=== PATIENT | male | born 1995 | race Caucasian/White ===

== ENCOUNTER 2016-09-22 15:27 | Emergency (ER) | payer BC ==
[~2016-09-22] VITALS: Ht 185.4 cm; Wt 77.6 kg
[2016-09-22 15:30] VITALS: TEMP 36.8; Ht 185.4 cm; Wt 77.6 kg
[2016-09-22] MEDS ORDERED: CHOL1000 PO (15:34)
[2016-09-22] MEDS ORDERED: IBUP-1050 PO (15:34)
[2016-09-22] MEDS ORDERED: SODIUM CHLORIDE 0.9% 1000ML 1,000 ML IV STA (15:36)
[2016-09-22 15:58] VITALS: O2SAT 98
--- NOTE | 2016-09-22 17:05 | DIAGNOSTIC IMAGING REPORT ---
HEAD CT NONCONTRAST CT DOSE: 537.48 mGy.cm HISTORY: Mental status change SEIZURE TECHNIQUE: Multiaxial CT images of the head were performed without the use of intravenous contrast. Comparison: None. Findings: The paranasal sinuses and mastoid air cells are clear. The calvarium and skull base are intact. The ventricles and sulci are within normal limits. There is no mass, hematoma, midline shift, or acute infarct. Impression: No acute intracranial abnormality. Electronically signed by: Vasile Ochoa M.D. 09/22/2016 5:03 PM Dictated Date/Time: 09/22/2016 5:01 PM
[2016-09-22 17:34] LABS: BASO % 0.5 %; BASO ABS # 0.04 K/uL (0-0.2); COMPLETE YES; EOS % 2.3 %; HEMATOCRIT 37.2 % (42-52); IG% 0.3 %; LYMPH % 18.6 %; LYMPH ABS # 1.38 K/uL (1.2-3.4); MEAN CELL VOLUME 86.3 fL (80-100); MEAN CORPUSCULAR HEMOGLOBIN 31.3 pg (25-34); MEAN CORPUSCULAR HGB CONC 36.3 g/dl (32-36); MEAN PLATELET VOLUME 9.4 fL (7.4-10.4); MONO % 9.8 %; NEUT % 68.5 %; PLATELET COUNT 221 K/uL (130-400); RED BLOOD COUNT 4.31 M/uL (4.7-6.1); WHITE BLOOD COUNT 7.42 K/uL (4.8-10.8)
[2016-09-22 17:43] LABS: PARTIAL THROMBOPLASTIN RATIO 1.1
[2016-09-22 17:45] LABS: BLOOD UREA NITROGEN 19 mg/dl (7-18); CALCIUM 8.7 mg/dl (8.5-10.1); CARBON DIOXIDE 28 mmol/L (21-32); CHLORIDE 106 mmol/L (98-107); GLUCOSE 69 mg/dl (70-99); MAGNESIUM 2.3 mg/dl (1.8-2.4); POTASSIUM 4.1 mmol/L (3.5-5.1); SODIUM 143 mmol/L (136-145)
[2016-09-22 17:48] LABS: BUN/CREATININE RATIO 16.1 (10-20)
[2016-09-22 17:58] LABS: PHOSPHORUS 4.8 mg/dl (2.5-4.9)
[2016-09-22 18:58] VITALS: BP 130/90; PULSE 79; O2SAT 99
--- NOTE | 2016-09-22 20:43 | EMERGENCY ROOM VISIT NOTE ---
History Report prepared by Scribe: Catrachita Borja Under the Supervision of: Dr. Daryl Watkins M.D. 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 No seizure history. Denies any other symptoms. History of Present Illness The patient is a 21 year old male who presents to the Emergency Room with complaints of a seizure that occurred prior to arrival. He was dancing at [facility] [employer] this weekend when he suddenly began to feel nauseous and then displayed seizure like activity prior to arrival. He does not think he actually vomited. EMS states he appeared to be tonic clonic for about 2 minutes then was post-ictal for approximately 15 minutes. The patient denies any history of previous seizures. He denies biting his tongue or losing control of his bowels or bladder. The patient states he feels "normal" here in the ED, but extremely fatigued from not sleeping in over 2 days. He denies any family history of seizures. He admits he experienced a headache earlier in the day, but states it has mostly resolved. He reports he was drinking Gatorade and water throughout the weekend, and only had a "tiny sip" of a friends "Jenn Rykert energy drink". Prior to the dance marathon the patient states he was in perfect health without any issues. The patient denies fevers, chills, diaphoresis, visual changes, neck pain, chest pain, breathing difficulties, abdominal pain, back pain, melena, hematochezia, urinary symptoms, numbness, weakness, lymphadenopathy, rash, or other complaints. 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 A total of ten systems were reviewed and were otherwise negative. Family History Diabetes mellitus Social History Smoking Status: Never Smoker Alcohol Use: occasionally Drug Use: none Marital Status: single Housing Status: lives with roommate Occupation Status: [employer] student Current/Historical Medications Scheduled Cholecalciferol (Vitamin D3), 1 TAB PO BID Ibuprofen (Advil), 200-600 MG PO Q4H Allergies Coded Allergies: No Known Allergies (Unverified , 09/22/16) Physical Exam Vital Signs Date Time Temp Pulse Resp B/P Pulse Ox O2 Delivery O2 Flow Rate FiO2 09/22/16 18:58 79 16 130/90 99 Room Air 09/22/16 17:41 69 16 117/67 98 Room Air 09/22/16 15:58 98 Room Air 09/22/16 15:58 98 Room Air 09/22/16 15:35 76 09/22/16 15:30 36.8 73 16 144/78 98 Room Air Physical Exam GENERAL: Awake, alert, well appearing, no distress HENT: Normocephalic, atraumatic. TM's normal. Oropharynx unremarkable. EYES: PERRL. Normal conjunctiva. Sclera non-icteric. Fundi normal. EOMI NECK: Supple. No nuchal rigidity. FROM. RESPIRATORY: CTA CARDIAC: RRR. Extremities warm and well perfused. ABDOMEN: Soft, non distended. No tenderness to palpation. No rebound or guarding. No masses. MUSCULOSKELETAL: Unremarkable. EXTREMITIES: No edema. No discoloration. Gross motor strength 5/5 bilaterally. NEURO: Normal sensorium. No sensory or motor deficits noted. Speech normal. Cranial nerves two through 12 intact. No pronator drift. Normal rapid alternating movements. SKIN: No rash or jaundice noted. LYMPH: No adenopathy. Medical Decision & Procedures ER Provider Diagnostic Interpretation: This CT scan was reviewed and interpreted by the radiologist and reviewed by myself. HEAD CT NONCONTRAST CT DOSE: 537.48 mGy.cm HISTORY: Mental status change SEIZURE TECHNIQUE: Multiaxial CT images of the head were performed without the use of intravenous contrast. Comparison: None. Findings: The paranasal sinuses and mastoid air cells are clear. The calvarium and skull base are intact. The ventricles and sulci are within normal limits. There is no mass, hematoma, midline shift, or acute infarct. Impression: No acute intracranial abnormality. Electronically signed by: Vasile Ochoa M.D. 09/22/2016 5:03 PM Laboratory Results 09/22/16 16:05 Red Blood Count 4.31, Mean Corpuscular Volume 86.3, Mean Corpuscular Hemoglobin 31.3, Mean Corpuscular Hemoglobin Concent 36.3, Mean Platelet Volume 9.4, Neutrophils (%) (Auto) 68.5, Lymphocytes (%) (Auto) 18.6, Monocytes (%) (Auto) 9.8, Eosinophils (%) (Auto) 2.3, Basophils (%) (Auto) 0.5, Neutrophils # (Auto) 5.08, Lymphocytes # (Auto) 1.38, Monocytes # (Auto) 0.73, Eosinophils # (Auto) 0.17, Basophils # (Auto) 0.04 09/22/16 16:05 Test 09/22/16 16:05 White Blood Count 7.42 K/uL (4.8-10.8) Red Blood Count 4.31 M/uL (4.7-6.1) Hemoglobin 13.5 g/dL (14.0-18.0) Hematocrit 37.2 % (42-52) Mean Corpuscular Volume 86.3 fL (80-100) Mean Corpuscular Hemoglobin 31.3 pg (25-34) Mean Corpuscular Hemoglobin Concent 36.3 g/dl (32-36) Platelet Count 221 K/uL (130-400) Mean Platelet Volume 9.4 fL (7.4-10.4) Neutrophils (%) (Auto) 68.5 % Lymphocytes (%) (Auto) 18.6 % Monocytes (%) (Auto) 9.8 % Eosinophils (%) (Auto) 2.3 % Basophils (%) (Auto) 0.5 % Neutrophils # (Auto) 5.08 K/uL (1.4-6.5) Lymphocytes # (Auto) 1.38 K/uL (1.2-3.4) Monocytes # (Auto) 0.73 K/uL (0.11-0.59) Eosinophils # (Auto) 0.17 K/uL (0-0.5) Basophils # (Auto) 0.04 K/uL (0-0.2) RDW Standard Deviation 40.2 fL (36.4-46.3) RDW Coefficient of Variation 12.6 % (11.5-14.5) Immature Granulocyte % (Auto) 0.3 % Immature Granulocyte # (Auto) 0.02 K/uL (0.00-0.02) Prothrombin Time 11.0 SECONDS (9.0-12.0) Prothromb Time International Ratio 1.0 (0.9-1.1) Activated Partial Thromboplast Time 27.6 SECONDS (21.0-31.0) Partial Thromboplastin Ratio 1.1 Anion Gap 9.0 mmol/L (3-11) Est Creatinine Clear Calc Drug Dose 107.8 ml/min Estimated GFR () 100.3 Estimated GFR (Non- 86.5 BUN/Creatinine Ratio 16.1 (10-20) Calcium Level 8.7 mg/dl (8.5-10.1) Phosphorus Level 4.8 mg/dl (2.5-4.9) Magnesium Level 2.3 mg/dl (1.8-2.4) Troponin I < 0.015 ng/ml (0-0.045) Thyroid Stimulating Hormone (TSH) 3.310 uIu/ml (0.300-4.500) Laboratory results reviewed by me Medications Administered Medications (Trade) Dose Ordered Sig/Marcio Route Start Time Stop Time Status Last Admin Dose Admin Sodium Chloride (Nss 1000ml) 1,000 ml @ 999 mls/hr Q1H1M STAT IV 09/22/16 15:36 09/22/16 16:36 DC 09/22/16 16:00 999 MLS/HR ECG Indication: weakness (seizure like activity) Rate (beats per minute): 71 Rhythm: sinus rhythm Findings: 1st degree AV block, Q waves (Septal) ED Course 1536: NSS 1000 ml @ 999 nls/hr IV. 1544: The patient was evaluated in room C1A. A complete history and physical exam was performed. 1827: I discussed the patient's case with his Mother, Jenny. I informed her of the patient's test results and answered her questions. She verbalized complete understanding and agreement with my plan to discharge the patient home. 185: I discussed the patients case with Dr. Hoover, [facility]. He recommends outpatient follow up. 0: I reevaluated the patient. He is feeling well and resting comfortably. I discussed his results and discharge instructions and he verbalized complete understanding and agreement. Medical Decision Prior records/ancillary studies reviewed. Patient placed in seizure precautions immediately upon arrival. Nursing notes reviewed and agree them. Additional history obtained from the patient's mother over the phone. The patient's history was concerning for a possible seizure. Differential diagnosis: Etiologies such as sleep deprivation seizure, epilepsy, infection, hypoglycemia , electrolyte abnormalities, cardiac sources, intracerebral event, trauma, toxicologic, neurologic, as well as others were entertained. Physical examination: As above. No signs of trauma. ER treatment provided: IV hydration Rest On reassessment the patient felt better. Diagnostics interpretation by me: ECG: A normal sinus rhythm. Septal Q-wave noted. The patient has no prior cardiac history. No prior ECG available. The labs revealed a slight anemia on CBC. Chemistry panel unremarkable. The patient's glucose was borderline. He was given Gatorade without problems. The patient's TSH was negative. Coags negative. Troponin negative. Imaging studies: CT scan as above. Consultation: A consultation was placed with the neurologist, Dr. Hoover. The case was discussed and diagnostics were reviewed. Since the patient has had significant sleep deprivation and had this event this is considered the likely cause. Treatment for seizure was not recommended at the time. The patient was given seizure precautions. He is not to drive until cleared in follow-up. He did recommend outpatient follow-up and this was discussed with the patient and his mother. He was instructed to follow up for MRI and EEG. The patient's mother states that this will happen at [facility]. I also did discuss the patient 's ECG. The patient was provided a copy as well as I did offer to have his imaging burn to a disc. The patient was advised to sleep and get plenty of rest. I gave my usual and customary discussion regarding this issue. By the evaluation outlined above emergent etiologies such as infection, hypoglycemia, electrolyte abnormalities, cardiac sources, intracerebral event, toxicologic, as well as others were deemed relatively unlikely. The patient was counseled not to drive until cleared in follow-up. 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 The patient and mother were informed about the findings as listed above. All questions were answered and they were pleased with the treatment. Return instructions were outlined and the patient was discharged in stable condition. Outpatient prescription management: None Referral: The patient was referred back to his primary care physician for follow-up in 2 to 3 days for a recheck of the current condition. The chart was completed utilizing [email or web address] voice recognition software. Grammatical errors, random word insertions, pronoun errors, and incomplete sentences are an occasional consequence of this system due to software limitations, ambient noise, and hardware issues. Any formal questions or concerns about the content, text, or information contained within the body of this dictation should be directly addressed to the physician for clarification. Consults Time Called: 1814 Consulting Physician: Dr. Hoover [facility] Returned Call: [phone] I discussed the patients case with Dr. Hoover [facility]. He recommends outpatient follow up. Impression Primary Impression: Seizure Scribe Attestation The scribe's documentation has been prepared under my direction and personally reviewed by me in its entirety. I confirm that the note above accurately reflects all work, treatment, procedures, and medical decision making performed by me. Departure Information Dispostion Home / Self-Care Patient Instructions My [facility] Additional Instructions Seizure Instructions: Ibuprofen(Motrin, Advil) may be used for fever or pain. Use 600mg every six hours as needed. Take with food. Avoid using more than 2400mg in a 24 hour period. Do not use 2400mg per day for more than three consecutive days without physician direction. Prolonged inappropriate use can lead to stomach upset or ulcers. (AND/OR) Acetaminophen(Tylenol) may be used for fever or pain. Use 1000mg every six hours as needed. Avoid using more than 4000mg in a 24 hour period. Rest and drink plenty of fluids as tolerated. Continue current medications. Return to the ER for passing out, chest pain, headache, persistent vomiting, fevers, abdominal pain, chest pains, difficulty breathing, black or bloody stools, worsening of your condition, or as needed. No driving until cleared in follow-up with neurology. Follow up with your primary physician when you return home for a recheck of your current condition. Blood work revealed a slight anemia. Electrolyte and cardiac markers were unremarkable. ECG did reveal a Q-wave electrical pattern in the front portion of the heart and the should have a follow-up as discussed.
--- NOTE | 2016-09-23 17:14 | EMERGENCY ROOM VISIT NOTE ---
ED Visit Note First contact with patient: 15:33 The patient's father called and noted he was having difficulty getting into a neurology follow-up for at least 8 weeks. The patient does have an EEG scheduled. The patient is doing well. The father was given the office information for [facility] neurology if he so chooses to follow-up here. 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
== END 2016-09-22 19:04 | disposition home or self-care (01) ==
LOC: EDBD 15:27 → C.EDC 15:28
DX: R56.9 Unspecified convulsions (principal); I44.0 Atrioventricular block, first degree; Z83.3 Family history of diabetes mellitus

== ENCOUNTER 2017-11-18 10:28 | Emergency (ER) | payer BC ==
[~2017-11-18] VITALS: Ht 182.9 cm; Wt 82.2 kg
[2017-11-18 10:28] VITALS: TEMP 37; Ht 182.9 cm; Wt 82.2 kg
[~2017-11-18 10:28] MED LIST: CHOL1000 PO; IBUP-1050 PO
[2017-11-18 10:36] VITALS: O2SAT 97
[2017-11-18] MEDS ORDERED: KETOROLAC TROMETHAMINE 30 MG/ML VIAL IV STA (11:35)
[2017-11-18 11:46] LABS: BASO % 0.4 %; BASO ABS # 0.04 K/uL (0-0.2); EOS % 1.1 %; EOS ABS # 0.11 K/uL (0-0.5); HEMATOCRIT 42.5 % (42-52); HEMOGLOBIN 15.3 g/dL (14.0-18.0); IG# 0.02 K/uL (0.00-0.02); LYMPH ABS # 1.32 K/uL (1.2-3.4); MEAN CELL VOLUME 86.9 fL (80-100); MEAN CORPUSCULAR HEMOGLOBIN 31.3 pg (25-34); MEAN PLATELET VOLUME 9.5 fL (7.4-10.4); MONO % 8.6 %; MONO ABS # 0.87 K/uL (0.11-0.59); NEUT % 76.7 %; NEUT ABS # 7.78 K/uL (1.4-6.5); PLATELET COUNT 264 K/uL (130-400); RED CELL DISTRIBUTION WIDTH CV 13.1 % (11.5-14.5); RED CELL DISTRIBUTION WIDTH SD 41.4 fL (36.4-46.3); WHITE BLOOD COUNT 10.14 K/uL (4.8-10.8)
[2017-11-18 11:55] LABS: ALBUMIN 4.5 gm/dl (3.4-5.0); ALT/SGPT 31 U/L (12-78); AST/SGOT 20 U/L (15-37); BLOOD UREA NITROGEN 16 mg/dl (7-18); CALCIUM 9.5 mg/dl (8.5-10.1); CARBON DIOXIDE 27 mmol/L (21-32); CREATININE 1.13 mg/dl (0.60-1.40); GLUCOSE 83 mg/dl (70-99); LIPASE 100 U/L (73-393); POTASSIUM 4.1 mmol/L (3.5-5.1); SODIUM 136 mmol/L (136-145); TOTAL PROTEIN 8.2 gm/dl (6.4-8.2)
--- NOTE | 2017-11-18 11:56 | DIAGNOSTIC IMAGING REPORT ---
CHEST ONE VIEW PORTABLE CLINICAL HISTORY: CHEST PAIN dyspnea COMPARISON STUDY: No previous studies for comparison. FINDINGS: The bones soft tissues and hemidiaphragms are normal. The cardiomediastinal silhouette is normal. The lungs are clear. The pulmonary vasculature is normal. IMPRESSION: Negative chest. The above report was generated using voice recognition software. It may contain grammatical, syntax or spelling errors. Electronically signed by: Vasile Ochoa M.D. 11/18/2017 11:54 AM Dictated Date/Time: 11/18/2017 11:54 AM
[2017-11-18 11:58] LABS: ALKALINE PHOSPHATASE 95 U/L (45-117); CKMB < 0.5 ng/ml (0.5-3.6)
--- NOTE | 2017-11-18 13:46 | EMERGENCY ROOM VISIT NOTE ---
History Report prepared by Beck: Fausto May Under the Supervision of: Dr. Romain Gamez M.D. First contact with patient: 11:25 Chief Complaint: CHEST PAIN Stated Complaint: CHEST PAIN Nursing Triage Summary: Pt presents via ALS in care of medic 25-4. Pt was at home this morning, got a nosebleed in the shower (reported he has frequent nosebleeds), vomited, and started to have chest pain at that time. Pt presented to [facility] who recommended that pt go to the hosptial for further evaluation. EMS called. Pt received 324mg ASA and 2 SL nitro tablets prehospital. Pt initially rated CP as 8/10 while at home and at [facility], and reported pain went down to 6-7/10 after SL nitro. EMS reported EKG showed sinus arrythmia, HR approx 130's. Pt reports that he had another episode of chest pain approx 3-4 days ago which lasted 2 days duration, he did not seek medical care at that time. Pt reports he fainted at [place] in Sep 2016, and was seen at various hospitals for cardiac assessment, including [facility], [facility] and [facility]. Pt was diagnosed with Brugada syndrome in December 2016 at [facility]. A pacemaker was initially considered, but ruled out. 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 Pt states that his grandparents also have history of Brugada syndrome and are in their 80's. Pt denies traumatic injuries. Pt states he smokes marijuana approx 2x/day and last smoked yesterday. Pt states the chest pain is positional and intensity changes when he moves his upper body, such as taking his shirt off to change into the hospital gown. History of Present Illness The patient is a 22 year old male who presents to the Emergency Room with complaints of constant left-sided chest pain beginning shortly prior to arrival. The patient states that he developed a nosebleed as well as his chest pain this morning while in the shower. He notes that he has frequent nose bleeds. He also complains of mild shortness of breath. The patient was seen at [facility] just prior to arrival for his symptoms and was referred to the ED. He denies calf swelling, lightheadedness, or dizziness. He has no family history of sudden cardiac . The patient notes that he had constant chest pain six days ago which resolved four days ago as well. He denies recent injury. The patient has a history of possible Brugada Syndrome. He was worked up for this after passing out during the [email or web address] [place] last year, and having an abnormal ECG. He states that the [facility] believes that the patient likely does not have Brugada Syndrome. The patient states that he has been stressed about school recently. He denies recent passing out. Source of History: patient Onset: Shortly prior to arrival Position: chest (left) Timing: constant Associated Symptoms: + SOB (mild) Note: The patient denies calf swelling, lightheadedness, or dizziness. He also complains of a nose bleed. Review of Systems See HPI for pertinent positives & negatives. A total of 10 systems reviewed and were otherwise negative. Past Medical & Surgical Medical Problems: (1) No Known Active Medical Problems (2) Seizure Brugada syndrome Family History Diabetes mellitus Social History Smoking Status: Never Smoker Alcohol Use: occasionally Drug Use: none Marital Status: single Housing Status: lives with roommate Occupation Status: [email or web address] student Current/Historical Medications Scheduled Cholecalciferol (Vitamin D3), 1,000 UNITS PO BID Allergies Coded Allergies: No Known Allergies (Unverified , 11/18/17) Physical Exam Vital Signs Date Time Temp Pulse Resp B/P (MAP) Pulse Ox O2 Delivery O2 Flow Rate FiO2 11/18/17 14:05 64 20 123/74 97 11/18/17 13:23 65 11/18/17 13:11 81 17 94 Room Air 11/18/17 13:01 115/81 11/18/17 12:41 70 19 11/18/17 12:31 119/71 11/18/17 12:11 66 12 96 Room Air 11/18/17 12:06 70 14 97 Room Air 11/18/17 12:01 116/89 11/18/17 11:36 72 18 99 Room Air 11/18/17 11:31 126/61 11/18/17 11:28 67 17 11/18/17 11:01 126/66 11/18/17 10:58 66 16 98 Room Air 11/18/17 10:45 63 11/18/17 10:44 140/69 11/18/17 10:37 135/80 11/18/17 10:36 97 Room Air 11/18/17 10:28 37.0 64 12 135/80 93 Room Air 11/18/17 10:28 97 Room Air Physical Exam General: Non-ill appearing young male in no acute distress. HEENT: Normal cephalic atraumatic. Pupils are equal round and reactive to light. Extraocular movements are intact. Oropharynx is pink with moist mucous membranes. No swelling of the mouth lips or tongue. Neck: Supple with a midline trachea. No meningeal signs or stiffness, no JVD or bruits. No Stridor. Chest: Clear to auscultation bilaterally. No wheezes or rhonchi. No increased work of breathing. Heart: regular rate and rhythm. Abdomen: Soft nontender, nondistended without rebound guarding or rigidity. Extremities: No cyanosis clubbing or edema. No calf tenderness or assymetry Spine/Back. Non tender to palpation. No CVA tenderness Skin: Good turgor without rashes. Neurologic exam: Cranial nerves two through 12 are intact. Motor and sensation are intact and symmetrical throughout. Medical Decision & Procedures ER Provider Diagnostic Interpretation: Radiology results as stated below per my review and radiologist interpretation: CHEST ONE VIEW PORTABLE FINDINGS: The bones soft tissues and hemidiaphragms are normal. The cardiomediastinal silhouette is normal. The lungs are clear. The pulmonary vasculature is normal. IMPRESSION: Negative chest. The above report was generated using voice recognition software. It may contain grammatical, syntax or spelling errors. Electronically signed by: Vasile Ochoa M.D. 11/18/2017 11:54 AM Laboratory Results 11/18/17 10:40 Red Blood Count 4.89, Mean Corpuscular Volume 86.9, Mean Corpuscular Hemoglobin 31.3, Mean Corpuscular Hemoglobin Concent 36.0, Mean Platelet Volume 9.5, Neutrophils (%) (Auto) 76.7, Lymphocytes (%) (Auto) 13.0, Monocytes (%) (Auto) 8.6, Eosinophils (%) (Auto) 1.1, Basophils (%) (Auto) 0.4, Neutrophils # (Auto) 7.78, Lymphocytes # (Auto) 1.32, Monocytes # (Auto) 0.87, Eosinophils # (Auto) 0.11, Basophils # (Auto) 0.04 11/18/17 10:40 Test 11/18/17 10:40 11/18/17 11:43 White Blood Count 10.14 K/uL (4.8-10.8) Red Blood Count 4.89 M/uL (4.7-6.1) Hemoglobin 15.3 g/dL (14.0-18.0) Hematocrit 42.5 % (42-52) Mean Corpuscular Volume 86.9 fL (80-100) Mean Corpuscular Hemoglobin 31.3 pg (25-34) Mean Corpuscular Hemoglobin Concent 36.0 g/dl (32-36) Platelet Count 264 K/uL (130-400) Mean Platelet Volume 9.5 fL (7.4-10.4) Neutrophils (%) (Auto) 76.7 % Lymphocytes (%) (Auto) 13.0 % Monocytes (%) (Auto) 8.6 % Eosinophils (%) (Auto) 1.1 % Basophils (%) (Auto) 0.4 % Neutrophils # (Auto) 7.78 K/uL (1.4-6.5) Lymphocytes # (Auto) 1.32 K/uL (1.2-3.4) Monocytes # (Auto) 0.87 K/uL (0.11-0.59) Eosinophils # (Auto) 0.11 K/uL (0-0.5) Basophils # (Auto) 0.04 K/uL (0-0.2) RDW Standard Deviation 41.4 fL (36.4-46.3) RDW Coefficient of Variation 13.1 % (11.5-14.5) Immature Granulocyte % (Auto) 0.2 % Immature Granulocyte # (Auto) 0.02 K/uL (0.00-0.02) D-Dimer < 190 ug/L FEU (0-500) Anion Gap 4.0 mmol/L (3-11) Est Creatinine Clear Calc Drug Dose 113.5 ml/min Estimated GFR () 107.1 Estimated GFR (Non- 92.4 BUN/Creatinine Ratio 13.8 (10-20) Calcium Level 9.5 mg/dl (8.5-10.1) Total Bilirubin 0.7 mg/dl (0.2-1) Direct Bilirubin 0.2 mg/dl (0-0.2) Aspartate Amino Transf (AST/SGOT) 20 U/L (15-37) Alanine Aminotransferase (ALT/SGPT) 31 U/L (12-78) Alkaline Phosphatase 95 U/L (45-117) Total Creatine Kinase 91 U/L (39-308) Creatine Kinase MB < 0.5 ng/ml (0.5-3.6) Creatine Kinase MB Ratio (0-3.0) Total Protein 8.2 gm/dl (6.4-8.2) Albumin 4.5 gm/dl (3.4-5.0) Lipase 100 U/L (73-393) Bedside Troponin I < 0.030 ng/ml (0-0.045) Laboratory studies as stated above per my review. Medications Administered Medications (Trade) Dose Ordered Sig/Marcio Route Start Time Stop Time Status Last Admin Dose Admin Ketorolac Tromethamine (Toradol Inj) 30 mg NOW STAT IV 11/18/17 11:35 11/18/17 11:38 DC 11/18/17 11:55 30 MG ECG Per My Interpretation Indication: chest pain Rate (beats per minute): 60 Rhythm: normal sinus, sinus with SA Findings: 1st degree AV block, other (Subtle ST change in V1 and V2 ( consistent with previously known Brugada)) Comparison ECG Date: Earlier today at [facility] Change: no significant change ED Course 1126: Past medical records reviewed. The patient was evaluated in room C6, and a complete history and physical examination were performed. 1135: Ordered Toradol Inj 30 mg IV. 1340: Upon reevaluation, the patient is resting comfortably. I discussed the results and treatment plan with him. He verbalized agreement of the treatment plan. The patient was discharged home. Medical Decision Differentials include, but are not limited to; ACS, arrhythmia, PE, musculoskeletal and electrolyte or metabolic abnormality. This patient comes in as described above appears placed in room C6. He has been having chest pain in the left side of his chest since Friday. It has been persistent from Friday through Friday and then occurred again today. He has had no syncope or dizziness or any near syncope. On exam his pain is reproducible. Chest x-ray was unremarkable there is no pneumothorax. D-dimer is negative and within a low pretest probability setting makes PE highly unlikely. He has no acute electrolyte or metabolic abnormalities. his cardiac biomarkers are not elevated and there is nothing to suggest acute coronary syndrome. He does have a history of Brugada syndrome that was evaluated at the [facility] and is felt that he does not need a defibrillator/pacemaker and again he has had nothing to suggest an arrhythmia and has had no syncope, lightheaded, or dizziness. his EKG shows no ischemic changes there are some subtle changes in V1 and V2 which are consistent with his Brugada syndrome but no other acute findings. I do think he can be discharged home he was given Toradol is feeling better. I did discuss this with our lease operator Dr. Alves as well who agrees. I discussed this with the mother who agrees with the plan. The patient was encouraged to return if: worsening symptoms, lightheadedness or dizziness, any new problems or concerns. Mother was happy with the plan and he was discharged to home. Medication Reconcilliation Current Medication List: was personally reviewed by me Blood Pressure Screening Patient's blood pressure: Normal blood pressure Blood pressure disposition: Did not require urgent referral Consults Time Called: 1242 Consulting Physician: Dr. Larios - Cardiology Returned Call: [phone] Discussed the patient's case. Dr. Larios feels the patient would be safe for discharge for follow-up with cardiology. Impression Primary Impression: Left sided chest pain Additional Impression: Acute costochondritis Scribe Attestation The scribe's documentation has been prepared under my direction and personally reviewed by me in its entirety. I confirm that the note above accurately reflects all work, treatment, procedures, and medical decision making performed by me. Departure Information Dispostion Home / Self-Care Referrals No Doctor, Assigned (PCP) Forms HOME CARE DOCUMENTATION FORM, IMPORTANT VISIT INFORMATION Patient Instructions My [facility] Additional Instructions Rest. Drink plenty of fluids. Use ibuprofen 400 mg every 6 hours, take with food Return if: Increasing pain, worsening symptoms, passing out, any new problems or concerns Follow-up with your doctor this week for recheck Problem Qualifiers
[2017-11-18 14:05] VITALS: BP 123/74; PULSE 64; O2SAT 97
== END 2017-11-18 14:05 | disposition home or self-care (01) ==
LOC: EDBD 10:28 → C.EDC 10:30
DX: R07.9 Chest pain, unspecified (principal); M94.0 Chondrocostal junction syndrome [Tietze]; I49.8 Other specified cardiac arrhythmias